=== PATIENT | male | born 1940 | race Caucasian/White ===

== ENCOUNTER 2024-09-12 09:39 | Day surgery (SDC) | payer MEDICARE, OTHER, SELFPAY ==
[2024-09-07 08:59] VITALS: BMI 26.1
--- NOTE | 2024-09-08 14:46 | P.CONAN_ITS ---
HPI - Anesthesia Eval Consult details Narrative: 84yo M for BILATERAL Blepharoplasty, Excisional biopsy of skin Lesion RIGHT eye (medial canthus) [facility] Past Medical History Medical History (Updated 09/07/24 @ 09:01 by Itzel Fitzpatrick RN) Diverticulitis Hx of brachytherapy Osteoarthritis Basal cell carcinoma Peptic ulcer Mild aortic stenosis Diabetes History of prostate cancer History of bleeding ulcers GERD (gastroesophageal reflux disease) Elevated cholesterol HTN (hypertension) Surgical History Surgical History (Updated 09/07/24 @ 08:55 by Itzel Fitzpatrick RN) History of esophagogastroduodenoscopy (EGD) History of hand surgery H/O bilateral cataract extraction Social History Social History Are you a primary regular senior care provider to a significant other at home: No Do you presently have visiting nurse or other home services: No Patient Tobacco Use Status: Never used Tobacco Use of substances other than those prescribed or required for medical reasons: No Have you been hit, kicked, punched, or otherwise hurt by someone within the past year? If so, by whom?: No Spiritual Healthcare Practices: none Alevism Healthcare Practices: Baptism Cultural Healthcare Practices: none Are you DNR?: No Advance Directives Information Provided: Yes (as above noted) Advance Directives on File: No Recently lost weight without trying: No Eating poorly because of decreased appetite: No Nutrition Risks: Surgical patient >75years Poor oral hygiene: No Meds Allergies Allergy/AdvReac Type Severity Reaction Status Date / Time Penicillins [PENICILLINS] Allergy Mild Rash Unverified 09/07/24 08:34 Home Medications ?Medication ?Instructions ?Recorded ?Confirmed ?Last Taken ?Type atorvastatin 40 mg tablet 40 mg PO BEDTIME 05/06/22 09/07/24 Unknown History metformin 500 mg tablet 500 mg PO TID 05/06/22 09/07/24 Unknown History omeprazole magnesium 20 mg 20 mg PO DAILY 05/06/22 09/07/24 Unknown History capsule,delayed release pioglitazone 30 mg tablet (Actos) 30 mg PO DAILY 05/06/22 09/07/24 Unknown History ramipril 10 mg capsule (Altace) 10 mg PO BID 05/06/22 09/07/24 Unknown History tamsulosin 0.4 mg capsule 0.4 mg PO DAILY@1700 05/06/22 09/07/24 Unknown History hydrochlorothiazide 25 mg tablet 25 mg PO QAM 09/07/24 09/07/24 Unknown History Exam Height,Weight and Vital Signs: Height 5 ft 8 in Weight 78.018 kg Assessment and Plan Assessment Anesthesia Assessment: Chart Reviewed
[2024-09-12 10:50] VITALS: BP 141/63; PULSE 76; RESP 15; TEMP 36.4; O2SAT 99
--- NOTE | 2024-09-12 12:24 | HO.PNOPHT ---
Ophthalmology Procedure Procedure Date of Service: 09/12/24 Ophthalmology Viscoelastic: Not Applicable Ophthalmology Lenses: Not Applicable Procedure Notes: PREOPERATIVE DIAGNOSIS: Decreased visual field secondary to dermatochalasia POSTOPERATIVE DIAGNOSIS: Same PROCEDURE: Bilateral Blepharoplasty, upper eyelids SURGEON: John Petty M.D. ANESTHESIA: Local with sedation ESTIMATED BLOOD LOSS: None COMPLICATIONS: None After obtaining informed consent, the patient was brought to the operating room and placed in supine position. After adequate sedation per Anesthesia, the eyes were prepped and draped in the usual sterile fashion. Attention was directed to the right eye where a double pinch test was completed to assure excess tissue was not removed from the upper lid. The margin was marked at the proposed incision sites. The left eye was done in a similar fashion. 2% Lidocaine with epinephrine was then instilled subcutaneously along the margin of the pre-marked skin incisions. #15 scalpel blade was then utilized to create the incisions. Using a combination of sharp and blunt dissection with Gregoria scissors, the epidermis was removed. Hemostasis was achieved with cautery. 6-0 plain suture was then utilized to close the incision site. Attention was directed to the left upper lid where subcutaneous 2% with Epinephrine Lidocaine was instilled along the pre-marked areas. A #15 scalpel blade was then utilized to create the incisions followed by sharp and blunt dissection with Gregoria scissors to remove the overlying epidermis. Hemostasis was achieved with cautery, followed by closure with 6-0 plain suture. The patient tolerated the procedure well. The patient will be followed up in the a.m. Topical antibiotic ointment was instilled over the incision sites and ice as tolerated for 48 hours.
--- NOTE | 2024-09-12 12:41 | MHC.SHP ---
Pre-Procedural Eval Section A - 24 Hr Update-Section A only Date of Service: 09/12/24 The patient is an INPATIENT: No Changes since office visit: No Cold of Flu in the past 2 weeks, No New Medical Problems, No Changes in Medication and No Patient answered all questions The patient has been examined within 24 hours of the surgical procedure. The History & Physical has been completed within 30 days and I have reviewed it.: Yes Section B - Complete if H&P > 30 days Chief Complaint: Cysts of right eye, unspecified eyelid Allergies: Allergies Allergy/AdvReac Type Severity Reaction Status Date / Time Penicillins [PENICILLINS] Allergy Mild Rash Verified 09/12/24 11:07 Plan Diagnosis/Plan: Unchanged I have reviewed the history and physical and performed a pertinent physical examination on my patient. No changes have occurred unless specified. Time Spent With Patient Time: Total time managing care of this patient today ____ minutes.
== END 2024-09-12 14:15 | disposition home or self-care (01) ==
PROVIDERS: PCP Internal Medicine; Visit Provider Ophthalmology
PROC: (CPT 15823; principal; 2024-09-12 13:00)
PROC: (CPT 15823; 2024-09-12 13:00)
DX: H02.831 Dermatochalasis of right upper eyelid (principal); H02.834 Dermatochalasis of left upper eyelid; H53.453 Other localized visual field defect, bilateral; H02.823 Cysts of right eye, unspecified eyelid; Z96.1 Presence of intraocular lens; I10 Essential (primary) hypertension; E11.9 Type 2 diabetes mellitus without complications; E78.00 Pure hypercholesterolemia, unspecified; Z85.46 Personal history of malignant neoplasm of prostate; Z79.84 Long term (current) use of oral hypoglycemic drugs; Z79.899 Other long term (current) drug therapy; Z88.0 Allergy status to penicillin
CPT/HCPCS: 15823; 88304; 88305; J2004